=== PATIENT | female | born 1945 | race Caucasian/White ===

== ENCOUNTER → 2019-07-24 | Outpatient (CLI) | payer OTHER, MEDICAID | LOC: M.RAD 11:30 | DX: M16.12 Unilateral primary osteoarthritis, left hip (principal); I10 Essential (primary) hypertension; M25.752 Osteophyte, left hip; M25.852 Other specified joint disorders, left hip ==

== ENCOUNTER 2019-09-01 06:09 | Inpatient (IN) | payer OTHER, MEDICAID ==
[2019-08-28 09:21] LABS: ABSOLUTE BASOPHILS 0.1 thou/uL (0.0-0.2); ABSOLUTE EOSINOPHILS 0.3 thou/uL (0.0-0.7); ABSOLUTE LYMPHOCYTES 2.7 thou/uL (0.8-5.3); ABSOLUTE MONOCYTES 0.5 thou/uL (0.0-1.2); ABSOLUTE NEUTROPHILS 4.4 thou/uL (1.6-8.1); EOSINOPHILS 3.6 %; HEMATOCRIT 41.6 % (37.0-47.0); HEMOGLOBIN 14.4 gm/dL (12.0-15.0); LYMPHOCYTES 34.4 %; MCH 33.9 pg (26.0-34.0); MCHC 34.7 g/dL (28.0-37.0); MCV 97.7 fL (80.0-100.0); MONOCYTES 5.7 %; MPV 7.9 fl. (7.2-11.1); NUCLEATED RBCS 0 /100WBC; PLATELET COUNT* 293 thou/uL (150-400); POLYS 55.3 %; RBC 4.26 mil/uL (4.20-5.00); RDW-CV 13.1 % (10.5-14.5); WBC 7.9 thou/uL (4.0-11.0)
[2019-08-28 09:33] LABS: APTT 24.5 Seconds (25.0-31.3)
[2019-08-28 09:36] LABS: ALBUMIN 4.1 g/dL (3.4-5.0); CALCIUM 8.7 mg/dL (8.5-10.1); CREATININE 1.1 mg/dL (0.6-1.3); POTASSIUM 4.1 mmol/L (3.5-5.1); TOTAL BILIRUBIN 0.6 mg/dL (<0.1-1.0)
[2019-08-28 10:29] LABS: ESR (SEDRATE) 20 mm/hr (0-30)
--- NOTE | 2019-08-28 17:06 | EKG ---
[place] [address] ELECTROCARDIOGRAM REPORT Name: AYDIN BOND Room: [facility]#: [id number] Admission: Attend Phys: Blake Riley DO Discharge: Date of : 45 Report #: [id number] THIS REPORT FOR: //name// [facility] Test Date: 2019-08-28 Test Time: 09:25:35 Pat Name: AYDIN RONDA Department: Room: Gender: F Dry Color Tester: : 1945 Requested By: Blake Riley Order Number: [id number] Reading MD: Rogelio Tovar Measurements Intervals [place] Rate: 83 P: 65 KS: 132 QRS: 60 QRSD: 156 T: 57 QT: 402 QTc: 473 Interpretive Statements Sinus rhythm Right bundle branch block Anteroseptal infarct, age indeterminate possible No previous ECG available for comparison Electronically Signed On 08-28-2019 17:06:12 WALL CLEANER by Rogelio Tovar [email or web address] <ELECTRONICALLY SIGNED> By: Rogelio Tovar MD, [facility] 08/28/19 1706 0925 09 Rogelio Tovar MD, FACC /EPI
[2019-08-28 23:08] LABS: GLYCOHEMOGLOBIN (HGB A1C) 5.6 % (4.8-5.6)
[~2019-09-01] VITALS: Ht 165.1 cm; Wt 95.3 kg
--- NOTE | ~2019-09-01 | OP ---
[facility] [address] [place] [address] OPERATIVE REPORT Name: AYDIN BOND Room: [address] IN ..#: [id number] Admission: 09/01/19 Attend Phys: Monico Nino Discharge: Date of : 45 Report #: [id number] THIS REPORT FOR: //name// CC: Blake Jacobs DATE OF SERVICE: 09/01/2019 PREOPERATIVE DIAGNOSIS: Advanced degenerative joint disease, left hip. POSTOPERATIVE DIAGNOSIS: Advanced degenerative joint disease, left hip. PROCEDURE: Left total hip arthroplasty. SURGEON: Blake Riley DO. NATUROPATH: Troy Santiago DO. ESTIMATED BLOOD LOSS: 250 mL. ANESTHESIA: General. COMPLICATIONS: None. DRAINS: None. SPECIMEN REMOVED: None. ORTHOPEDIC IMPLANTS: Biomet total hip arthroplasty system. 1. Size 10 standard offset Taperloc femoral stem. 2. A 54 mm acetabular shell with 25 mm bone screws x 2. 3. A 40 mm high-wall polyethylene liner. 4. A 40 mm ceramic head with -3 neck length. ANTIBIOTICS: Ancef 2 g IV preoperatively. CONDITION OF PATIENT: Stable to PACU. INDICATION: The patient is a very pleasant 74-year-old female seen in my clinic regarding left hip pain she has had for many years. Pain has unfortunately begun to interfere with her quality of life and activities of daily living. She has a history of had failed extensive conservative treatment. She was having significant difficulties with walking. X-rays were consistent with end-stage degenerative joint disease. Based on failed conservative treatment, I discussed the potential benefit of left total hip arthroplasty. I discussed procedure, [address] [address] OPERATIVE REPORT Name: AYDIN BOND Alfonso Room: [address] IN ..#: [id number] Admission: 09/01/19 Attend Phys: Monico Nino Discharge: Date of : 45 Report #: [id number] risks, benefits, complications and indications in detail with her. Risks discussed include but not limited to infection, neurovascular injury, continued or worsened pain, hardware failure, fracture, dislocation, leg length discrepancy, need for further surgery, DVT, PE, and/or anesthesia complications. She did express understanding and wished to proceed with surgery. DESCRIPTION OF PROCEDURE: After consent was obtained, the patient was taken to the operative suite and placed in supine position on the operating room table. She was given the benefit of general anesthesia. All bony prominences were well padded. A well-padded perineal post was placed. Left hip was then sterilely prepped and draped in the usual fashion. Preoperative timeout was obtained to confirm the correct patient, procedure and operative site. Surgery began with standard anterior approach incision approximately 10 cm in length. Sharp dissection was taken down to the level of the tensor fascia. A new knife was used. The fascia was split in line with the skin incision. The underlying muscle belly was then reflected and the interval between the tensor muscle and the sartorius was encountered. Deeper dissection exposed the circumflex vessels. These were pretreated with Aquamantys followed by ligation with electrocautery. Sequential retractors were placed. A Estrada elevator was then used to reflect the indirect head of the rectus off the anterior hip capsule. Once the capsule was isolated, we then pretreated the capsule with Aquamantys and an anterior capsulectomy was performed. She had a normal-appearing joint effusion. She did have severely eburnated bone throughout the acetabulum and the femoral head with osteophytes throughout. The femoral neck was made with approximately 1 fingerbreadth above the lesser trochanter. The femoral head was removed exposing the acetabulum. We removed any calcified labrum with electrocautery. We then began sequential reaming, progressing up to a size 53. This gave us good fit and fill of the acetabulum as well as good punctate bleeding throughout. Final reaming and cup implantation was done under C-arm guidance. The final 54 mm shell was then impacted into place in appropriate version and inclination. This did have good purchase. Two acetabular screws were then placed, both 25 mm, both had good purchase. The manhole cover was placed. The final high wall liner was impacted into place to appropriate position and confirmed to be locked in place. Attention was then turned to the femur, #5 and #8 retractors were used. The releases were performed and the hip was gradually externally rotated, extended and adducted. Femoral hook was used to elevate the proximal femur up into the wound. This gave us good exposure. The box osteotome was then utilized followed by rat tail rasp and sequential broaching. This progressed up to a size 10. This gave us good fit and fill of the proximal femur. Trial reduction was then performed with a -3 neck length. The hip was taken through a range of motion and there was no subluxation or dislocation noted. Intraoperative x-rays confirmed good position of the trial implants with near equal leg lengths. At this time, the hip was then again dislocated. Trial components were removed. [address] [address] OPERATIVE REPORT Name: AYDIN BOND Room: [facility]#: [id number] Admission: 09/01/19 Attend Phys: Monico Nino Discharge: Date of : 45 Report #: [id number] The final size 10 stem was impacted into place to appropriate depth. Again, this had a great proximal femur purchase. A trial reduction was again performed and a -3 neck length was chosen. The final -3 neck length, 40 mm ceramic head was then impacted under a clean trunnion. The hip was then reduced with good reduction maneuver, taken through range of motion. There was no subluxation or dislocation noted in all planes. The final x-rays were then taken, noting good position of all hardware with equal leg lengths and no obvious acute intraoperative complications. The wound was then thoroughly irrigated with sterile saline. Ortho cocktail was injected. Tensor fascia was reapproximated with a running Quill suture. Subcutaneous tissue was closed with 2-0 Vicryl in interrupted fashion followed by running Monocryl stitch on the skin. This was covered with Dermabond, which was allowed to dry, and sterile dressing. She did tolerate the procedure well without complications. She was taken to recovery room in stable condition. All needle and sponge counts correct x 2 at the end of the procedure. By: [id number] Riley DO /junior
[~2019-09-01 06:09] MED LIST: ALPRAZOLAM 0.50.5 M1 PO; CHILDREN'S ASPI81 M1 PO; DESYREL150 MG PO; LISINOPRIL-HCT1 EAC2 PO; MELOXICAM15 MG PO; OMEPRAZOLE 20 M20 M1 PO; ROPINIROLE HCL0.5 MG PO; SIMVASTATIN40 MG PO; STIOLTO RESPIMAT4 GM INH; TYLENOL PM EX-1 EACH PO; ULTRAM 50MG TAB50 MG PO
[2019-09-01 07:03] VITALS: BP 125/65
[2019-09-01 16:16] VITALS: BP 104/80
--- NOTE | 2019-09-01 18:31 | NUR ---
PATIENT REC'D FROM PACU TO RM 106. PATIENT ALERT AND ORIENTED THRU REST OF SHIFT. PATIENT UP TO [facility] THIS [facility], NO VOID YET. PATIENT INSTRUCTED IF SHE IS UNABLE TO VOID, WE ARE ABLE TO STR CATH, PATIENT DECLINED STR CATH AT THIS TIME. IV SITE NOTED WNL. USING FWW W/ SBA. CURRENTLY RESTING IN BED W/ CALL IGHT IN REACH. ICE TO LT HIP, SURG DRSG NOTED CDI. SCD'S ON BLE. O2 RA AT THIS TIME. 92-93%. ~TJRN
[2019-09-01 19:35] VITALS: BP 116/62
[2019-09-02] VITALS: BP 113/60
[2019-09-02 04:00] VITALS: BP 112/57
[2019-09-02 04:20] LABS: HEMATOCRIT 32.3 % (37.0-47.0); HEMOGLOBIN 11.2 gm/dL (12.0-15.0)
--- NOTE | 2019-09-02 04:22 | NUR ---
PATIENT ALERT AND ORIENTED X 4 BUT HAS BEEN SOMEWHAT IMPULSIVE AT TIMES AND SOMEWHAT FORGETFUL. WHEN DISCUSSED AT LENGTH WITH PATIENT SPECIFIC INCIDENTS SHE REMEMBERS BUT COULDN'T SAY WHY SHE DID SUCH A THING. 1) TRIED TO GET OUT OF BED WITHOUT ASSIST SETTING OFF BED ALARM AND 2) PULLED O2 TUBING OUT OF WALL AND HAD IT ALL WRAPPED AROUND HER HAND. VITAL SIGNS STABLE WITH O2 ON AT 2L/MIN. DRESSING LEFT HIP CLEAN AND DRY. ICE PRN TO LEFT HIP THROUOGHOUT NIGHT. TEDS HOSE ON BILAT. PATIENT HAS REFUSED SCD'S. UP TO [facility] WITH ADEQUATE VOIDS. NO NAUSEA WITH ORAL INTAKE. TRANSFER WITH MIN/MOD ASSIST SUPINE TO SIT, MIN ASSIST SIT TO STAND AND CGA/GAIT BELT WITH TRANSFER OVER TO COMMODE TAKING SEVERAL STEPS WITH INSTRUCTIONS. ADEQUATE PAIN CONTROL WITH ALTERNATING OXY IR AND TYLENOL. CONTINUE TO MONITOR.
[2019-09-02 07:15] VITALS: BP 109/62
--- NOTE | 2019-09-02 12:10 | NUR ---
CALLED IN PRESCRIPTION FOR ELIQUIS, WRITTEN, TO PT[facility] IN [place]. WILL CALL BACK FOR COPAY. SPOKE WITH PT.IN ROOM. SHE IS NORMALLY INDEPENDENT AT HOME. LIVES ALONE IN AN APT. DRIVES, SHOPS, COOKS. PLANS TO STAY WIT HER DAUGHTER, DARRELL, AT HER HOUSE IN [place] WHEN DISCHARGED.SHE HAS A FWW SHE CAN USE. NO DISCHARGE PLANNED TODAY. PT.HAS SOME PAIN CONTROL ISSUES. SAID SHE HAD TOO HIGH OF EXPECTATIONS. SHE THOUGHT SHE WOULDN'T HAVE MUCH PAIN AT ALL AFTER SURGERY.ENCOURAGED HER THAT IT WILL GET BETTER.
[2019-09-02 15:02] VITALS: BP 109/62
--- NOTE | 2019-09-02 15:02 | NUR ---
I have reviewed the documentation by RADHA SHAFER from 09/02/19 to 09/02/19 and I concur with it. SHAYLA POOLE
[2019-09-02 16:00] VITALS: BP 148/66
--- NOTE | 2019-09-02 16:57 | NUR ---
pt remained alert and oriented and forgetful. pain meds given as ordered. up for meals. physician notified of adverse eeffect of pain meds and requested new pain meds. fall risk precautions in place. hourly rouding completed. will continue to monitor.
[2019-09-02 20:37] VITALS: BP 106/56
--- NOTE | 2019-09-03 05:33 | NUR ---
PATIENT SLEPT WELL THROUGH SHIFT. SEVERAL PAIN ASSESSMENTS MADE SHE DID NOT REQUEST ANY PAIN MEDICINE. ALERT AND ORIENTED AND UP WITH ASSIST X2 WITH GAIT BELT AND WALKER. WBAT AND PLAN TO SEE PT/OT TODAY. DRESSING IS C/D/I MEPALEX ON LEFT HIP. WILL CONTINUE TO FOLLOW PLAN OF CARE.
[2019-09-03 05:38] LABS: HEMOGLOBIN 10.4 gm/dL (12.0-15.0)
[2019-09-03 07:10] VITALS: BP 118/46
[2019-09-03] MEDS ORDERED: ELIQUIS2.5 MG PO (09:35)
[2019-09-03] MEDS ORDERED: COLACE100 MG PO (09:35)
--- NOTE | 2019-09-03 13:28 | NUR ---
I have reviewed the documentation by RADHA SHAFER from 09/03/19 to 09/03/19 and I concur with it. SHAYAL POOLE
--- NOTE | 2019-09-03 13:56 | NUR ---
SPOKE TO PTS DTR DARRELL RE THE NEED FOR PT TO GO TO [facility]. DARRELL IS AGREEABLE TO [facility] AND STATES THAT SHE WOULD LIKE SOMETHING CLOSE,POSSIBLY [facility]. SPOKE TO [facility]. THEY HAVE A FEMALE BED. WILL FAX PAPERWORK
[2019-09-03 14:58] LABS: ALKALINE PHOSPHATASE 59 U/L (46-116); ANION GAP 8 mmol/L (7-16); BUN 29 mg/dL (7-18); CALCIUM 7.8 mg/dL (8.5-10.1); CHLORIDE 101 mmol/L (98-107); CO2 26 mmol/L (21-32); CREATININE 2.2 mg/dL (0.6-1.3); GLUCOSE 166 mg/dL (70-99); MAGNESIUM 1.9 mg/dL (1.8-2.4); POTASSIUM 3.7 mmol/L (3.5-5.1); SGOT 45 U/L (15-37); SGPT 15 U/L (30-65); SODIUM 135 mmol/L (136-145); TOTAL BILIRUBIN 1.1 mg/dL (<0.1-1.0); TOTAL PROTEIN 6.8 g/dL (6.4-8.2); TROPONIN-I LEVEL <0.06 ng/mL (<0.06)
--- NOTE | 2019-09-03 15:00 | NUR ---
FAXED REFERRAL TO [facility] [phone]; [phone] WITH NOTATION THAT PATIENT WILL DC TOMORROW, 09/04/19. CONFIRMED WITH FACILITY THAT THEY RECEIVED AND EBONY/INTAKE WILL BE BACK TOMORROW TO REVIEW. DCP WILL FOLLOW UP IN THE AM.
--- NOTE | 2019-09-03 15:18 | EKG ---
[place] [address] ELECTROCARDIOGRAM REPORT Name: AYDIN BOND Room: [address] ADM IN M.R.#: [id number] Admission: 09/01/19 Attend Phys: Monico Nino Discharge: Date of : 45 Report #: [id number] THIS REPORT FOR: //name// [facility] Test Date: 2019-09-03 Test Time: 14:10:20 Pat Name: AYDINVinod BOND Department: Room: [address] Gender: F Mercerizer: IDRIS : 1945 Requested By: Margarita Dickinson Order Number: [id number] Calvin MD: Blake Guzman Measurements Intervals [place] Rate: 100 P: 72 ND: 124 QRS: 110 QRSD: 98 T: 27 QT: 358 QTc: 462 Interpretive Statements Sinus tachycardia RBBB Anteroseptal infarct, age indeterminate Compared to ECG 08/28/2019 09:25:35 Sinus rhythm no longer present Myocardial infarct finding still present Electronically Signed On 09-03-2019 15:17:48 BLADE FILER by Blake Guzman [email or web address] <ELECTRONICALLY SIGNED> By: Blake Guzman MD, FAC 09/03/19 1517 1410 1410 Blake Guzman MD, [facility] /EPI
[2019-09-03 15:23] LABS: ABSOLUTE BASOPHILS 0.1 thou/uL (0.0-0.2); ABSOLUTE EOSINOPHILS 0.1 thou/uL (0.0-0.7); ABSOLUTE LYMPHOCYTES 1.6 thou/uL (0.8-5.3); ABSOLUTE MONOCYTES 1.3 thou/uL (0.0-1.2); ABSOLUTE NEUTROPHILS 8.6 thou/uL (1.6-8.1); BASOPHILS 0.8 %; HEMATOCRIT 32.3 % (37.0-47.0); HEMOGLOBIN 10.9 gm/dL (12.0-15.0); LYMPHOCYTES 13.7 %; MCH 33.4 pg (26.0-34.0); MCHC 33.9 g/dL (28.0-37.0); MCV 98.7 fL (80.0-100.0); MONOCYTES 10.8 %; MPV 7.8 fl. (7.2-11.1); NUCLEATED RBCS 0 /100WBC; PLATELET COUNT* 201 thou/uL (150-400); POLYS 73.7 %; RBC 3.28 mil/uL (4.20-5.00); RDW-CV 13.4 % (10.5-14.5); WBC 11.7 thou/uL (4.0-11.0)
[2019-09-03 16:18] VITALS: BP 100/54
[2019-09-03 16:26] LABS: ESR (SEDRATE) 79 mm/hr (0-30)
--- NOTE | 2019-09-03 17:12 | NUR ---
PT REMAINED ALERT AND ORIENTED. PT RESTING IN BED. PAIN MEDS GIVEN ORDERED. NEPHROLOGY AND UROLOGY CONSULTED. FALL RISK PRECAUTIONS IN PLACE. HOURLY ROUNDING COMPLETED. WILL CONTINUE TO MONITOR.
--- NOTE | 2019-09-03 17:18 | NUR ---
I have reviewed the documentation by RADHA SHAFER from 09/03/19 to 09/03/19 and I concur with it. SHAYLA POOLE
[2019-09-03 19:30] VITALS: BP 101/48
[2019-09-04 04:02] LABS: HEMOGLOBIN 9.8 gm/dL (12.0-15.0); MCH 34.1 pg (26.0-34.0); MCV 97.4 fL (80.0-100.0); MPV 8.3 fl. (7.2-11.1); RBC 2.87 mil/uL (4.20-5.00); RDW-CV 13.4 % (10.5-14.5); WBC 10.4 thou/uL (4.0-11.0)
[2019-09-04 04:21] LABS: ALBUMIN 2.7 g/dL (3.4-5.0); CALCIUM 7.7 mg/dL (8.5-10.1); POTASSIUM 3.7 mmol/L (3.5-5.1); TOTAL BILIRUBIN 0.8 mg/dL (<0.1-1.0); TOTAL PROTEIN 6.4 g/dL (6.4-8.2)
[2019-09-04 05:35] LABS: URINE BILIRUBIN NEGATIVE (Negative); URINE BLOOD 1+ (Negative); URINE CLARITY CLEAR; URINE COLOR YELLOW; URINE GLUCOSE-RANDOM NEGATIVE (Negative); URINE KETONES NEGATIVE (Negative); URINE LEUKOCYTES NEGATIVE (Negative); URINE NITRITE NEGATIVE (Negative); URINE PROTEIN 1+ (Negative); URINE SPECIFIC GRAVITY 1.025 (1.005-1.030); URINE UROBILINOGEN 0.2 E.U./dl (0.2-1.0)
--- NOTE | 2019-09-04 05:41 | NUR ---
ASSUMED CARE OF PATIENT AT APPROX 1930. ALERT AND ORIENTED X4. ASSESSMENT COMPLETED AND CHARTED. VSS ON ROOM AIR. NO COMPLAINTS OF PAIN THROUGHOUT THE NIGHT. PATIENT UP WITH GAIT BELT AND WALKER TO USE THE BEDSIDE COMMODE. US SAMPLE SENT TO LAB. FALL PRECAUTIONS IN PLACE. CALL LIGHT IN REACH. HOURLY ROUNDS COMPLETED. WILL CONTINUE WITH PLAN OF CARE.
[2019-09-04 05:56] LABS: SQUAMOUS >10 Many /LPF (0-3); URINE RBC 3-10 Few /HPF (0-2); URINE WBC 0-5 Rare /HPF (0-5)
[2019-09-04 05:57] LABS: BACTERIA 1-9 Few /HPF (None Seen); CRYSTALS None Seen /LPF (None Seen); HYALINE CASTS 4-10 Moderate /LPF (None Seen); MUCUS 4-6 Moderate strn/LPF (None Seen)
[2019-09-04 08:00] VITALS: BP 103/55
--- NOTE | 2019-09-04 10:22 | NUR ---
FAXED REFERRAL TO [facility] AT [facility] [place] [phone]; [phone]. DAUGHTER, DARRELL HAS A STRONG PREFERENCE FOR MOTHER TO GO TO [facility]. SPOKE TO JAX/POLY AT [facility] AND BED AVAILABILITY MAY NOT BE UNTIL 09/08/19. DCP TO FOLLOW.
--- NOTE | 2019-09-04 14:26 | NUR ---
CONFIRMED WITH JAX/POLY AT [facility] THAT THEY HAVE A BED AVAILABLE AND SHE IS WORKING ON INSURANCE AUTHORIZATION. SENT ADMISSION ORDERS AND AND eMAR SHE REQUESTED. DCP TO FOLLOW. [phone]; [phone].
[2019-09-04 16:00] VITALS: BP 110/51
--- NOTE | 2019-09-04 17:03 | NUR ---
JEAN-PIERRE RESTING IN BED. UP WITH STANDBY ASSISTANCE AND WALKER USAGE. VSS. HOMACECILIA IN NOAPPARNET SIGNS OF DISTRESS AT THIS TIME. SHE IS WANTING TO UTILIZE REHAB AT [facility]. LEFT HIP SURGICAL SITE CLEAN AND DRY WITH NO S/S OF INFECTION. HOURLY ROUNDING COMPLETD FOR PATIENT SAFETY.
[2019-09-04 20:15] VITALS: BP 108/57
[2019-09-05 04:15] LABS: HEMATOCRIT 28.2 % (37.0-47.0); HEMOGLOBIN 9.9 gm/dL (12.0-15.0); MCH 34.5 pg (26.0-34.0); MCHC 35.2 g/dL (28.0-37.0); MCV 98.1 fL (80.0-100.0); MPV 8.1 fl. (7.2-11.1); RBC 2.88 mil/uL (4.20-5.00); WBC 9.2 thou/uL (4.0-11.0)
[2019-09-05 04:31] LABS: CALCIUM 8.2 mg/dL (8.5-10.1); CREATININE 1.1 mg/dL (0.6-1.3)
--- NOTE | 2019-09-05 05:45 | NUR ---
MEDS GIVEN ORDERED. PAIN MANAGED WITH TYLENOL. XANAX GIVEN PER PT REQUEST. PT UP TO THE BATHROOM WITH MIN ASSIST. BLADDER SCANNED AND PVR CHARTED. IVF RUNNING ORDERED. DRESSING TO LT HIP C/D/I. ICE PACK IN PLACE. HOURLY ROUNDING COMPLETED. WILL CONTINUE TO MONITOR.
[2019-09-05 09:00] VITALS: BP 121/49
--- NOTE | 2019-09-05 09:30 | NUR ---
CONFIRMED WITH JAX/POLY AT [facility] [place] THAT THEY ARE WAITING FOR INSURANCE AUTHRIZATION WITH [employer] AND SOON THEY GET APPROVAL THE PATIENT CAN BE ADMITTED. SPOKE TO MICHELLE/ROSY'S SPOUSE [phone]. THAT WE ARE WAITING FOR A BED AT [facility] AND THAT I WOULD CONTACT THEM SOON I HEARD FROM THEM.
--- NOTE | 2019-09-05 14:51 | NUR ---
CONFIRMED WITH JAX/POLY AT [facility] AT [place] THAT THEY HAVE INSURANCE AUTHORIZATION. SHE ARRANGED TRANSPORTATION FOR PATIENT BY [facility] TO BE PICKED UP TODAY AT 16:30. HER ROOM NUMBER AT [facility] WILL BE [id number]. CONTACTED HER DAUGHTER DARRELL STONE [phone] OF THE ARRANGEMENTS. CM AND ORTHO UNIT NOTIFIED. DC ORDERS, SUMMARY AND UPDATED THERAPY NOTES TO BE FAXED TO [facility] WHEN DC ORDERS COMPLETE.
[2019-09-05 16:00] VITALS: BP 124/54
[2019-09-05 16:40] VITALS: BP 109/62
--- NOTE | 2019-09-05 18:34 | NUR ---
I ASSUMED CARE OF THE PATIENT AT 0700. SHE IS ALERT AND ORIENTED X4 AND IS UP WITH SBA AND A WALKER. BED IS IN THE LOW LOCKED POSITION AND CALL LIGHT IS IN REACH. HOURLY ROUNDING IS COMPLETED AND PATIENT NEEDS ARE MET. SHE IS BEING DISCHARGED TO [facility] AND TAKEN BY [facility]. SHE LEFT AT 1645. PAIN IS MANAGED WITH PRN MEDS. REPORT CALLED TO
--- NOTE | 2019-09-09 11:03 | CON ---
[address] [address] CONSULTATION Name: AYDIN BOND Room: [address] IN M.R.#: [id number] Admission: 09/01/19 Attend Phys: Monico Nino Discharge: 09/05/19 Date of : 45 Report #: [id number] THIS REPORT FOR: //name// CC: Blake Jacobs DATE OF SERVICE: 09/04/2019 NEPHROLOGY CONSULTATION CONSULTING PHYSICIAN: Dr. Albert. REASON FOR NEPHROLOGY CONSULTATION: Acute kidney injury. REASON FOR ADMISSION: Elective admission for left total hip arthroplasty. HISTORY OF PRESENT ILLNESS: The patient is a 74-year-old female with severe degenerative joint disease. She also has history of hypertension, COPD, GERD, and she came in on 09/01 for left total hip arthroplasty and the surgery went well without any problems. Her preop labs on 08/28 showed a creatinine of 1.1 but her creatinine 2 days after surgery, which was yesterday, was 2.2 and hence Nephrology was consulted. She takes lisinopril, hydrochlorothiazide, and meloxicam at home and all these medications were continued during the hospital and she did receive all these dosages yesterday morning as well. Her blood pressure also was found to be running low in 100 systolic. Urology was also consulted over here because she had some microscopic hematuria and for her acute kidney injury. The patient states that her PCP had referred her to Urology already as outpatient as well for microscopic hematuria. Urology has asked for a PVR and might continue to follow up with her as outpatient as well. Her p.o. intake is good. Renal ultrasound is unremarkable and her creatinine is better today with all the changes after we stopped her offending medicines also. Her creatinine is slightly better at 2.0 today. ALLERGIES: KETOROLAC and GATIFLOXACIN. REVIEW OF SYSTEMS: As mentioned above, the patient otherwise has been feeling fine. A 10-point review of systems done, negative. HOME MEDICATIONS: Include meloxicam 15 mg daily, lisinopril/hydrochlorothiazide, ropinirole, omeprazole, tramadol, trazodone, simvastatin, ____, acetaminophen diphenhydramine, aspirin, and Stiolto. PAST MEDICAL AND SURGICAL HISTORY: Includes tonsillectomy, appendectomy, hysterectomy, laparotomy, blepharoplasty, restless legs syndrome, hypertension, osteoarthritis, GERD, COPD, cataract [place] [address] CONSULTATION Name: KRISTEL BONDY Alfonso Room: [address]#: [id number] Admission: 09/01/19 Attend Phys: Monico Nino Discharge: 09/05/19 Date of : 45 Report #: [id number] FAMILY HISTORY: No family history of kidney disease in the family. SOCIAL HISTORY: She is a former smoker, does not take alcohol or use illicit drugs. She lives at home. PHYSICAL EXAMINATION: VITAL SIGNS: Blood pressure is 103/55, pulse rate is 107, temperature 37.1, respiratory rate 15, she is on room air, and pulse ox is 95%. GENERAL: She is awake, alert, oriented x 3. HEAD: Atraumatic, normocephalic. EYES: Normal conjunctivae. EARS, NOSE, AND THROAT: Normal ears and nose. Mucous membranes are moist NECK: No JVD. CHEST: Bilaterally clear to auscultation. No crackles or wheezing. CARDIOVASCULAR: S1, S2 normal. No murmurs. ABDOMEN: Soft, nondistended, nontender. Bowel sounds are present. EXTREMITIES: Lower extremities, there is no lower extremity edema. NEUROLOGICAL FUNCTION: Gross neurological function is intact. PSYCHIATRIC: Mood and affect seems to be normal. LABORATORY DATA: Hemoglobin is 9.8, sodium is 138, potassium is 3.7, CO2 is 29, and creatinine is 2.0, down from 2.2. Baseline creatinine of 1.1 and other labs were reviewed. IMAGING: Renal ultrasound and other imaging studies were reviewed. ASSESSMENT: 1. Acute kidney injury in the setting of low blood pressure, recent surgeries, left hip total arthroplasty, lisinopril, hypertension, and meloxicam use. Baseline creatinine of 1.1 and creatinine peaked at 2.2. Urine reviewed showed 3-10 rbc's by high power field, but it was a contaminated specimen with squamous epithelial cells and 1-9 bacteria with hyaline casts as well. Renal ultrasound showed right renal cyst, otherwise, unremarkable and the cyst also looks simple in nature. 2. History of microscopic hematuria, Urology is also evaluating her. UA should be checked after acute kidney injury has resolved. 3. Degenerative joint disease and status post left total hip arthroplasty on 09/01. 4. Metabolic alkalosis. 5. History of hypertension. Blood pressure has been running low. PLAN: 1. Continue to monitor kidney function. Continue to hold lisinopril and hydrochlorothiazide and meloxicam and avoid nephrotoxic agents. 2. Also, [place] [address] CONSULTATION Name: AYDIN BOND Room: [address] IN [facility]#: [id number] Admission: 09/01/19 Attend Phys: Monico Nino Discharge: 09/05/19 Date of : 45 Report #: [id number] 3. Labs in the morning. 4. Avoid NSAIDs. Thank you for this consultation. We will continue to follow with you. Discussed with the patient and the patient's nurse, Alex. <ELECTRONICALLY SIGNED> By: Stephanie Boykin MD 09/09/19 1103 1031 1059Alucila Boykin MD /nt
== END 2019-09-05 16:45 | DRG 469 ==
LOC: M.TBA 06:09 → M.PRE 06:12 → M.TBA 09:56 → M.ORTHSURG 09:56 → M.PRE 11:43 → M.ORTHSURG 09-05 16:45
PROVIDERS: Internal Medicine; Orthopaedic Surgery; ADMIT Internal Medicine
PROC: 0SRB03A Replacement of Left Hip Joint with Ceramic Synthetic Substitute, Uncemented, Open Approach (ICD-10-PCS; principal; 2019-09-01)
DX: M16.12 Unilateral primary osteoarthritis, left hip (principal); N17.0 Acute kidney failure with tubular necrosis; E43 Unspecified severe protein-calorie malnutrition; E87.3 Alkalosis; I10 Essential (primary) hypertension; G25.81 Restless legs syndrome; Z96.1 Presence of intraocular lens; R31.29 Other microscopic hematuria; J44.9 Chronic obstructive pulmonary disease, unspecified; K21.9 Gastro-esophageal reflux disease without esophagitis; Z88.1 Allergy status to other antibiotic agents; Z88.8 Allergy status to other drugs, medicaments and biological substances; Z79.899 Other long term (current) drug therapy; Z79.82 Long term (current) use of aspirin; Z90.89 Acquired absence of other organs; Z90.710 Acquired absence of both cervix and uterus; Z98.42 Cataract extraction status, left eye; Z98.41 Cataract extraction status, right eye; Z82.49 Family history of ischemic heart disease and other diseases of the circulatory system; Z87.891 Personal history of nicotine dependence; Z68.34 Body mass index [BMI] 34.0-34.9, adult